=== PATIENT | male | born 1940 | race Caucasian/White ===

== ENCOUNTER → 2023-07-08 | Day surgery (SDC) | payer MEDICARE ==
[2023-07-08] VITALS (9 sets, daily range): BP systolic 104–110; BP diastolic 43–52; PULSE 94–98; RESP 18–22
[~2023-07-08] MED LIST: 0.9%NACL 1000ML 1,000 ML IV ONE; FENTANYL CITRATE PF 50 MCG/1 ML 2ML VIAL ONE; FLUMAZENIL 0.1MG/1ML 5ML VIAL IV ONE; LIDOCAINE HCL 2% VISCOUS 15 ML UDCUP ONE; MIDAZOLAM HCL 1 MG/ML 2ML VIAL ONE; NALOXONE HCL 0.4 MG/1 ML ML ONE
== END | disposition home or self-care (01) ==
LOC: DAH 15:43
PROVIDERS: ATTEND Internal Medicine Cardiovascular Disease
DX: I08.3 Combined rheumatic disorders of mitral, aortic and tricuspid valves (principal); Z79.01 Long term (current) use of anticoagulants
CPT/HCPCS: 93325; 93312; J3010; J7030; J2250; A4215; A4223 ×3; A7002; A4222; A4221; A4663; A4216; A4606; 99152; J2310; J3490; G0500